=== PATIENT | male | born 2000 | race Hispanic/Latino ===

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

== ENCOUNTER 2019-07-09 21:34 | Emergency (ER) | payer BC | END 2019-07-09 23:26 | disposition home or self-care (01) | LOC: ERS 21:34 | DX: S61.211A Laceration without foreign body of left index finger without damage to nail, initial encounter (principal); F41.9 Anxiety disorder, unspecified; F32.9 Major depressive disorder, single episode, unspecified; Z79.899 Other long term (current) drug therapy; W26.0XXA Contact with knife, initial encounter; Y93.G3 Activity, cooking and baking | CPT/HCPCS: 12001 ==